=== PATIENT | female | born 1975 | race Caucasian/White ===

== ENCOUNTER → 2024-08-14 19:07 | Outpatient (REF) | payer BC, SELFPAY | LOC: MRI 19:07 | PROVIDERS: ATTENDING PHYSICIAN Specialist; FAMILY PHYSICIAN Nurse Practitioner Adult Health | DX: M25.561 Pain in right knee (principal) | CPT/HCPCS: 73721 ==

== ENCOUNTER → 2025-02-10 08:57 | Outpatient (REF) | payer BC, SELFPAY ==
[2025-02-10 10:08] LABS: Hematocrit 41.7 % (37.0-47.0); Hemoglobin 14.4 g/dL (12.0-16.0); Mean Corp Hgb Conc. 34.5 g/dL (33.0-37.0); Mean Corpuscular Volume 89.3 fL (81.0-99.0); Nucleated Red Blood Cells % 0 %; Platelet Count 255 10^3/uL (130-400); Red Cell Dist. Width 12.7 % (11.5-14.5)
[2025-02-10 10:51] LABS: Vitamin D, 25-OH*** 31.8 ng/mL (30-80)
[2025-02-10 10:52] LABS: ALT (SGPT) 81 U/L (0-35); AST (SGOT) 45 U/L (14-36); Albumin 5.0 g/dl (3.5-5.0); Alkaline Phosphatase 111 U/L (38-126); Blood Urea Nitrogen 19 mg/dl (7-17); Calcium 9.6 mg/dl (8.4-10.2); Carbon Dioxide 25 mmol/L (22-30); Chloride 106 mmol/L (98-107); Glucose 104 mg/dl (70-99); Potassium 4.6 mmol/L (3.5-5.1); Sodium 140 mmol/L (135-145); Total Protein 8.3 g/dl (6.3-8.2); Very Low Density Lipoprotein 26 mg/dl (0-30); eGFR > 60.00
[2025-02-10 11:00] LABS: Glycohemoglobin (HgbA1c) 5.1 % (4.0-5.6)
[2025-02-10 11:02] LABS: HDL Cholesterol 113 mg/dl; LDL Cholesterol, Calculated 153 mg/dl
[2025-02-10 11:24] LABS: Vitamin B12 313 pg/ml (239-931)
== END ==
LOC: REG 08:57
PROVIDERS: ATTENDING PHYSICIAN Nurse Practitioner; FAMILY PHYSICIAN Nurse Practitioner Adult Health
DX: F41.1 Generalized anxiety disorder (principal); F33.1 Major depressive disorder, recurrent, moderate; F41.0 Panic disorder [episodic paroxysmal anxiety]
CPT/HCPCS: 36415; 80053; 80061; 82306; 82607; 83036; 84443; 85025